=== PATIENT | male | born 1990 | race African-American/Black ===

== ENCOUNTER 2022-05-16 12:46 | Emergency (ER) | payer OTHER, SELFPAY ==
[2022-05-16 13:00] VITALS: BP 148/80; PULSE 70; RESP 20; TEMP 36.8; O2SAT 97
--- NOTE | 2022-05-16 13:38 | ED.WOUNDLAC ---
HPI - Wound/Laceration General Chief Complaint: Skin/Abscess/Foreign Body Stated Complaint: Swollen Lip Time Seen by Provider: 05/16/22 13:30 Source: patient and RN notes reviewed Mode of arrival: ambulatory Limitations: no limitations History of Present Illness HPI narrative: 31-year-old male presents concern for swelling and pain to his lips. Reports he was seen at [place] emergency room yesterday and had stitches placed on a lacerated upper and lower lip. Reports he was given a prescription for Augmentin which she did not fill yet. He reports he used ice, however has not taken any [id number] medications for pain. He reports he has been drooling because of his swelling. However he denies difficulty swallowing. He denies any other facial pain or swelling. Related Data Allergies Allergy/AdvReac Type Severity Reaction Status Date / Time No Known Allergies Allergy Mild Verified 05/16/22 13:01 Review of Systems Review of Systems: CONSTITUTIONAL: Denies malaise, chills, sweats, or fever. EYES: Denies redness, or discharge. ENT: Denies rhinorrhea, congestion SKIN: Reports swollen upper and lower lips, reports intact sutures MUSCULOSKELETAL: Denies joint pain or myalgia. NEUROLOGIC: Denies headache. All systems reviewed & are unremarkable except as noted in HPI and below PMFSH Comments At time of signature, agree with nursing past medical, surgical, social and family history. There is no relevant family history pertinent to the presenting complaint Exam Narrative: GENERAL: Well-appearing, well-nourished, and in no acute distress. HEAD: Normocephalic, atraumatic. EYES: PERRLA, conjunctivae clear ENT: Mucous membranes moist. Oropharynx without edema, erythema or lesions. NECK: Supple. No lymphadenopathy CHEST: Clear to auscultation. No respiratory distress. HEART: Regular rate and rhythm. SKIN: Warm, dry. Upper and lower lip edema. Sutures intact to the inner and outer upper lip, on the inner lower lip. No noted induration, erythema or other signs of infection at this time. NEURO: Alert and oriented x3. PSYCH: Normal mood and affect Course Course Emergency Course: Patient is aware of diagnosis, understands and agrees to treatment plan. Anticipatory guidance given. Patient agrees to follow-up as directed and is aware of reasons to seek care at the emergency department. Portions of this record may have been created with voice recognition software Level of Care: Express Care Visit Vital Signs Vital signs: Vital Signs Temperature 98.2 F 05/16/22 13:00 Pulse Rate 70 05/16/22 13:00 Respiratory Rate 20 05/16/22 13:00 Blood Pressure 148/80 H 05/16/22 13:00 Pulse Oximetry 97 05/16/22 13:00 Oxygen Delivery Room Air 05/16/22 13:00 Temperature 98.2 F 05/16/22 13:00 Pulse Rate 70 05/16/22 13:00 Respiratory Rate 20 05/16/22 13:00 Blood Pressure 148/80 H 05/16/22 13:00 Pulse Oximetry 97 05/16/22 13:00 Oxygen Delivery Room Air 05/16/22 13:00 Reviewed. MDM - Wound/Laceration MDM Narrative Medical decision making narrative: Exam findings show no acute concerns or changes; patient is non-toxic appearing and is in no distress. Patient is appropriate for outpatient treatment and follow-up. Differential Diagnosis Differential diagnosis: Likely laceration, abscess, abrasion and avulsion of skin Critical Care Time Critical Care Time Critical Care Time: No Discharge Plan Discharge Clinical Impression: Laceration of lip Patient Disposition: Home, Self-Care Condition: Stable Instructions: Antibiotic Form, Laceration (ED) Additional Instructions: Antibiotics as directed, start them today. Continue to apply ice to your lips. You need to sleep in an upright position to help with swelling. Keep wound clean, and dry. Apply antibiotic ointment twice daily. Clean with soap and water twice daily, but do not soak, take baths, or swim until wound is completely healed. Do not
== END 2022-05-16 13:43 | disposition home or self-care (01) ==
PROVIDERS: Emergency Provider Nurse Practitioner
DX: S01.511A Laceration without foreign body of lip, initial encounter (principal); X58.XXXA Exposure to other specified factors, initial encounter
CPT/HCPCS: 99213; G0463